=== PATIENT | male | born 1955 | race African-American/Black ===

== ENCOUNTER 2016-12-06 14:17 | Inpatient (IN) | payer OTHER ==
[~2016-12-06] VITALS: Ht 175.3 cm; Wt 74.6 kg
--- NOTE | ~2016-12-06 | HC ---
[facility] [address] CONSULTATION Name: ARASH HARMON Room #: 506-1 ADM IN M.R.#: [id number] Admission: 12/06/16 Attend Phys: Wilbur Bearden MD Discharge: Date of : 57 Report #: [id number] THIS REPORT FOR: //name// CC: Wilbur Leos DATE OF SERVICE: 12/10/2016 NEUROBEHAVIORAL STATUS EXAM ATTENDING PHYSICIAN: Wilbur Bearden M.D. SPECTRAL SCIENTIST: Nicolas Whitney, PhD CLINICAL PRESENTATION: The patient is a 61-year-old male admitted to the [facility] rehabilitation unit for comprehensive inpatient rehabilitation program to improve functional mobility and activities of daily living and self-care secondary to deficits from a cervical myopathy. The patient has recently underwent an anterior cervical discectomy with effusion at C3-C6. His symptoms include bilateral upper extremity weakness in both upper and lower extremities, hypertension, hyperlipidemia and swallowing difficulties. A complete description of his medical condition and history can be found in his medical record. Neuropsychological consultation was requested to provide assistance in the assessment of cognitive and emotional status and to provide recommendations and services. He is and living with his in their home. He has one son. The patient is a high school graduate with an associate of arts degree in [employer] management. 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 The patient indicates having a history of a sports related concussion while playing high school football. There is no other history of concussion that he reported. 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 EXAMINATION FINDINGS: The patient was alert and cooperative with the assessment. He is difficult to understand as he utilizes a surgical collar. Expressive speech is mildly dysarthric. He does not present with aphasia. His thoughts are logical and goal oriented. There is no evidence of thought disorder or report of auditory or visual hallucinations. Reported symptoms include decreased appetite as a result of difficulty [facility] [address] [place] [address] CONSULTATION Name: HARMONARASH Mark Room #: 506-1 [facility] IN ..#: [id number] Admission: 12/06/16 Attend Phys: Wilbur Bearden MD Discharge: Date of : 57 Report #: [id number] swallowing and increased anxiety. He denies difficulty with memory, word finding or sleep. He does not report depressive symptoms. Symptoms suggesting a mild anxiety about his medical well being are reported. His performance on the MMSE 2 brief version is within normal limits with a raw score of 15 of 16. The patient was 2/3 for immediate recall of 3 items after a brief time delay and distraction. Performance on the MMSE 2 standard version was within normal limits with a raw score of 29/30. DIAGNOSTIC IMPRESSION: Adjustment Disorder with Anxious Mood Recommendations: The patient's cognitive ability appears within normal limits at this time. Initial variability in memory as a result of recovery from the surgical procedure and medications used for sedation are likely. At this time, his cognitive function appears to be to within normal limits. Reassurance and continued physical improvement in functional independence will also improve his self confidence and diminish anxiety. If concern about cognition continues following discharge then neuropsychological evaluation will be necessary to assist in the clarification of deficits. Thank you very much for allowing me to provide the consultation on this patient. <ELECTRONICALLY SIGNED> By: Nicolas Whitney, PhD 12/17/16 1534 [id number] Nicolas Whitney, PhD /nt
--- NOTE | ~2016-12-06 | PLAN ---
[facility] [place] [address] REHAB UNIT PLAN OF CARE Name: ARASH HARMON Room #: 506-1 ADM IN M.R.#: [id number] Admission: 12/06/16 Attend Phys: Wilbur Bearden MD Discharge: Date of : 57 Report #: [id number] THIS REPORT FOR: //name// CC: Wilbur Leos The patient is seen back today in followup. Last recorded temp 97.3, pulse 82, respirations 16, and blood pressure 115/82. The patient is alert. Speech therapy is involved. He underwent a video swallow study and he is allowed mechanical soft with all liquids. He does have some coughing, but again appears to be swallowing without noted aspiration. He continues with the increased tone of both lower extremities with several beats clonus, and has the weakness of the upper extremities. He is max assist with sit to stand and is mod assist ambulating 66 feet with a front-wheeled walker. In occupational therapy, upper body dressing is dependent, lower body dressing has been dependent to max assist. He has been a bit groggy per the staff. Agree with the decreasing of the Klonopin, which has been done and the Flexeril as well. ASSESSMENT: 1. Spastic cervical myelopathy. 2. Status post anterior cervical diskectomy with effusion, C3-C6 on 12/01/2016. 3. Bilateral upper extremity weakness with some increased tone in both upper and lower extremities. 4. Hypertension. 5. Hyperlipidemia. 6. Rule out dysphagia. PLAN: The overall plan of care is based on the preadmission screen, post-admission physician evaluation and information garnered from therapy assessments. 1. Estimated length of stay is probably at least 2 weeks and potentially longer as he is at a lower functional level. 2. Medical prognosis is reasonably good. 3. Anticipated interventions include the interdisciplinary acute inpatient rehabilitation program. 4. Anticipated functional outcomes would be to improve his functional mobility and ADL independence, strength and endurance. 5. Discharge destination would be back home with family. Notes to be living with his and they have a multilevel home. 6. Expected therapy by discipline includes PT and OT and speech 1 hour per day each five days a week throughout the duration of the acute inpatient rehabilitation stay. <ELECTRONICALLY SIGNED> By: Wilbur Bearden MD 12/13/16 1523 [id number] Wilbur Bearden MD /nt
--- NOTE | ~2016-12-06 | H ---
[facility] [place] [address] HISTORY AND PHYSICAL Name: ARASH HARMON Room #: 506-1 ADM IN M.R.#: [id number] Admission: 12/06/16 Attend Phys: Wilbur Bearden MD Discharge: Date of : 57 Report #: [id number] THIS REPORT FOR: //name// CC: Wilbur Leos DATE OF SERVICE: 12/06/2016 HISTORY OF PRESENT ILLNESS: The patient is an 61-year-old male who was originally admitted to [facility] with worsening bilateral upper extremity numbness, tingling and problems with gait. He was diagnosed with a cervical myelopathy through diagnostic imaging. He was admitted to [facility] and underwent anterior cervical diskectomy with fusion. The surgery was performed through the [facility] [place]. The patient's primary care physician is Dr. Vianney Leos. The surgeon was Dr. Samy Amaya. This surgery was on 12/01/2016. He did note some right upper extremity weakness postoperatively what is noted to be improving. He has been placed in a hard cervical collar. He is felt to be ready for transfer for acute in-hospital inpatient rehabilitation. He has functional mobility and ADL deficits as well as concern regarding swallowing issues. He is now been transferred to [facility] to the inpatient rehabilitation [place]. PAST MEDICAL HISTORY: Includes hyperlipidemia. MEDICATIONS: Please see the full medication listing. Each of these was individually reconciled. Medications also include supplements and over the counters. ALLERGIES: No known drug allergies. SOCIAL HISTORY: The patient lives with his and granddaughter, house, 6 steps plus another 6 steps. He used cane on occasion. His does work outside the home. He was premorbidly independent with ADLs. FAMILY HISTORY: Noncontributory. REVIEW OF SYSTEMS: No current complaints of chest pain, shortness of breath, abdominal discomfort. No voiding or bladder issues. He does use the urinal. Some pain is expected. Some swallowing concern. Complains of weakness of both upper extremities. PHYSICAL EXAMINATION: GENERAL: He is a pleasant 61-year-old -[place] male in no obvious distress. He is alert, pleasant, slender -[place]ic male. VITAL SIGNS: Last recorded temperature is 98.7, pulse 99, respirations 18, blood pressure 117/86. [address] [address] HISTORY AND PHYSICAL Name: ARASH HARMON Mark Room #: 506-1 [facility] IN ..#: [id number] Admission: 12/06/16 Attend Phys: Wilbur Bearden MD Discharge: Date of : 57 Report #: [id number] HEENT: Faces are symmetric. His anterior cervical scar appears to be healing and well. EOMs are full. CHEST: Sounded clear to auscultation. CARDIOVASCULAR: Regular rate rhythm with occasional extra beats. ABDOMEN: Bowel sounds positive, nontender. GENITOURINARY AND RECTAL: Deferred. EXTREMITIES: He has functional range of motion of both upper extremities. Strength of the right upper extremity is a grade 4- to 3+/5. Left upper extremity is a grade 3+. He does have increased DTRs with positive Nowak's. In his lower extremities, his strength is more of a grade 4- but he again has increased DTRs. Both knees are grade 3 and he does have several beats of clonus at the ankles. Sensory examination was intact to simultaneous stimulation, bilateral upper and lower extremities. ASSESSMENT: An 61-year-old male with the following problem list: 1. Spastic cervical myelopathy. 2. Status post anterior cervical diskectomy with fusion C3 through C6 on 12/01/2016. 3. Bilateral upper extremity weakness with some increased tone in both upper and lower extremities. 4. Hypertension. 5. Hyperlipidemia. 6. Rule out swallowing difficulties. PLAN: The patient is admitted for acute in-hospital inpatient rehabilitation. From a post-admission physician evaluation perspective, there are no relevant changes since the preadmission screening. Please see the above review of prior and current medical and functional conditions and comorbidities. The patient's diagnosis is appropriate. He meets medical necessity criteria. He does have tolerance for rehab therapies and has appropriate discharge goals back to the home setting. Please see the patient's previous and current functional status. As far as measurable functional goals, would be for him to become modified independent with transfers, mobility and ADLs at least at the walker level to return back to the home setting. Prognosis is reasonably good with estimated length of stay probably 2 weeks or longer depending on how he does. Internal medicine will be consulted regarding medical issues during his rehab stay. <ELECTRONICALLY SIGNED> By: Wilbur Bearden MD 12/13/16 1523 [id number] Wilbur Bearden MD /nt
[~2016-12-06 14:17] MED LIST: HYDROCODONE-APA1 TA1 PO; WELLBUTRIN 100100 MG PO
[2016-12-06] MEDS ORDERED: FLEXERIL PO (15:38)
[2016-12-06] MEDS ORDERED: ESZOPICLONE1 MG PO (15:39)
[2016-12-06] MEDS ORDERED: NORCO 10-325 T1 EAC1 PO (15:41)
[2016-12-06] MEDS ORDERED: ZOCOR20 MG PO (15:42)
[2016-12-06 16:00] VITALS: BP 115/91
[2016-12-07 04:23] VITALS: BP 117/86
[2016-12-07 07:08] LABS: HEMATOCRIT 39.4 % (42.0-52.0); HEMOGLOBIN 12.9 gm/dL (14.0-18.0); MCH 25.6 pg (26.0-34.0); MCHC 32.7 g/dL (28.0-37.0); MCV 78.3 fL (80.0-100.0); RBC 5.03 mil/uL (4.50-6.00); RDW 13.2 % (10.5-14.5)
[2016-12-07 07:34] LABS: CALCIUM 9.5 mg/dL (8.5-10.1); CREATININE 0.8 mg/dL (0.7-1.3); POTASSIUM 3.9 mmol/L (3.5-5.1)
[2016-12-07 08:00] VITALS: BP 124/82
[2016-12-07 16:15] VITALS: BP 116/90
[2016-12-07 20:30] VITALS: BP 122/86
[2016-12-08 05:28] VITALS: BP 117/81
[2016-12-08 16:00] VITALS: BP 99/71
[2016-12-09 05:56] VITALS: BP 115/82
[2016-12-09 05:56] LABS: HEMATOCRIT 38.6 % (42.0-52.0); HEMOGLOBIN 12.7 gm/dL (14.0-18.0); MCH 25.9 pg (26.0-34.0); MCHC 32.8 g/dL (28.0-37.0); RBC 4.88 mil/uL (4.50-6.00); RDW 12.8 % (10.5-14.5); WBC 6.9 thou/uL (4.0-11.0)
[2016-12-09 06:05] LABS: CALCIUM 9.7 mg/dL (8.5-10.1); CREATININE 0.8 mg/dL (0.7-1.3); MAGNESIUM 1.6 mg/dL (1.8-2.4); POTASSIUM 3.9 mmol/L (3.5-5.1)
[2016-12-09 16:17] VITALS: BP 111/78
[2016-12-10 06:13] VITALS: BP 117/76
[2016-12-10 15:58] VITALS: BP 127/87
[2016-12-11 04:36] VITALS: BP 103/71
[2016-12-11 16:00] VITALS: BP 107/72
[2016-12-12 05:57] VITALS: BP 103/75
[2016-12-12 15:50] VITALS: BP 109/81
[2016-12-13 05:34] VITALS: BP 116/81
[2016-12-13 16:00] VITALS: BP 119/86
[2016-12-14 05:20] VITALS: BP 111/79
[2016-12-14 05:50] LABS: ABSOLUTE NEUTROPHILS 3.8 thou/uL (1.4-8.2); BASOPHILS 0.6 % (0.0-2.0); EOSINOPHILS 1.4 % (0.0-3.0); HEMATOCRIT 38.3 % (42.0-52.0); HEMOGLOBIN 12.7 gm/dL (14.0-18.0); LYMPHOCYTES 34.5 % (24.0-44.0); MCH 25.9 pg (26.0-34.0); MCHC 33.1 g/dL (28.0-37.0); MCV 78.1 fL (80.0-100.0); MONOCYTES 10.8 % (1.0-8.0); PLATELET COUNT 304 thou/uL (150-400); POLYS 52.7 % (36.0-66.0); RBC 4.91 mil/uL (4.50-6.00); RDW 12.9 % (10.5-14.5); WBC 7.3 thou/uL (4.0-11.0)
[2016-12-14 05:55] LABS: MANUAL DIFF NO
[2016-12-14 05:58] LABS: CALCIUM 9.5 mg/dL (8.5-10.1); CREATININE 0.8 mg/dL (0.7-1.3); MAGNESIUM 1.9 mg/dL (1.8-2.4); POTASSIUM 4.2 mmol/L (3.5-5.1)
[2016-12-14 16:45] VITALS: BP 117/87
[2016-12-15 04:07] VITALS: BP 116/84
[2016-12-15 16:00] VITALS: BP 120/75
[2016-12-16 04:04] VITALS: BP 117/81
[2016-12-16 16:51] VITALS: BP 132/91
[2016-12-17 05:58] VITALS: BP 116/82
[2016-12-17 16:00] VITALS: BP 115/85
[2016-12-18 05:29] VITALS: BP 117/77
[2016-12-18 16:00] VITALS: BP 125/85
[2016-12-19 05:21] VITALS: BP 107/64
[2016-12-19 15:40] VITALS: BP 124/82
[2016-12-20 05:29] VITALS: BP 106/77
[2016-12-20 16:00] VITALS: BP 115/72
[2016-12-21 05:49] VITALS: BP 126/58
[2016-12-21 15:30] VITALS: BP 115/77
[2016-12-22 05:25] VITALS: BP 114/79
[2016-12-22 16:10] VITALS: BP 119/84
[2016-12-23 04:55] VITALS: BP 116/71
[2016-12-23 05:03] LABS: ABSOLUTE NEUTROPHILS 2.5 thou/uL (1.4-8.2); BASOPHILS 0.6 % (0.0-2.0); EOSINOPHILS 1.8 % (0.0-3.0); HEMATOCRIT 34.3 % (42.0-52.0); HEMOGLOBIN 11.6 gm/dL (14.0-18.0); LYMPHOCYTES 48.9 % (24.0-44.0); MCH 26.2 pg (26.0-34.0); MCHC 33.8 g/dL (28.0-37.0); MCV 77.5 fL (80.0-100.0); PLATELET COUNT 300 thou/uL (150-400); POLYS 38.7 % (36.0-66.0); RBC 4.42 mil/uL (4.50-6.00); RDW 12.8 % (10.5-14.5); WBC 6.6 thou/uL (4.0-11.0)
[2016-12-23 05:10] LABS: MANUAL DIFF NO
[2016-12-23 05:11] LABS: CALCIUM 9.3 mg/dL (8.5-10.1); CREATININE 0.8 mg/dL (0.7-1.3); MAGNESIUM 1.7 mg/dL (1.8-2.4); POTASSIUM 4.2 mmol/L (3.5-5.1)
[2016-12-23 16:00] VITALS: BP 104/73
[2016-12-24 05:54] VITALS: BP 130/64
[2016-12-24 16:02] VITALS: BP 94/56
[2016-12-25 06:46] VITALS: BP 105/70
[2016-12-25 16:31] VITALS: BP 119/73
[2016-12-26 04:41] VITALS: BP 112/70
[2016-12-26 16:00] VITALS: BP 113/79
[2016-12-27 05:22] VITALS: BP 104/62
[2016-12-27 09:49] VITALS: BP 104/62
[2016-12-27 11:14] VITALS: BP 104/62
== END 2016-12-27 15:07 | disposition home health service (06) | DRG 552 ==
PROVIDERS: Nurse Practitioner; Physical Medicine & Rehabilitation
DX: M50.00 Cervical disc disorder with myelopathy, unspecified cervical region (principal); I10 Essential (primary) hypertension; E78.5 Hyperlipidemia, unspecified; F43.20 Adjustment disorder, unspecified; G47.00 Insomnia, unspecified; R53.83 Other fatigue; R13.10 Dysphagia, unspecified; G62.9 Polyneuropathy, unspecified; E83.42 Hypomagnesemia; Z79.899 Other long term (current) drug therapy
CPT/HCPCS: 10112